=== PATIENT | male | born 1990 | race Caucasian/White ===

== ENCOUNTER 2024-02-02 13:29 | Outpatient (CLI) | payer BC, SELFPAY ==
--- NOTE | ~2024-02-02 | US_ITS ---
EXAMINATION: US scrotum doppler DATE: 02/02/2024 13:58 INDICATION: Testicular pain. TECHNIQUE: Grayscale and Doppler ultrasound images of the testes were obtained. COMPARISON: None. FINDINGS: The right testis measures 4.6 x 2.3 x 3.2 cm. The left testis measures 4.4 x 2.4 x 3.0 cm. There is normal vascular flow to both testes. The right epididymis is normal with normal vascular radha w. The left epididymis is normal with normal vascular flow. There is no varicocele or hydrocele. IMPRESSION: 1. Normal testes. Reviewed, dictated and finalized at location A. IMPRESSION: 1. Normal testes.
== END 2024-02-02 13:30 ==
PROVIDERS: PCP Urology; Visit Provider Urology
DX: N50.811 Right testicular pain (principal)
CPT/HCPCS: 76870; 93976